=== PATIENT | female | born 1955 | race Caucasian/White ===

== ENCOUNTER 2016-12-09 19:21 | Emergency (ER) | payer BC, MEDICARE ==
[2016-12-09 19:22] VITALS: BP 163/85; PULSE 77; RESP 16; TEMP 98.1; O2SAT 97
[2016-12-09] MEDS ORDERED: PRED-503 PO (20:16)
[2016-12-09] MEDS ORDERED: MECL-62 PO (20:16)
[2016-12-09] MEDS ORDERED: MOME17I EACH NARE (20:16)
--- NOTE | 2016-12-09 20:21 | PD ---
HPI Chief Complaint: ENT Complaint Time Seen by Provider: 20:18 Travel History International Travel<30 days: No Contact w/Intl Traveler<30days: No Traveled to known affect area: No History of Present Illness HPI 61-year-old white female presents to emergency Department with complaints of dizziness. She's been having symptoms now for the last 2-3 days. Symptoms are worse when she bends and moves. She's has a sensation of dizziness and movement. She has had some decreased hearing, and ear congestion. She states that she feels muffled in her head. She hears her voice resonating in her sinuses. She does have seasonal allergies. She denies any fever or chills. No ear pain or sore throat. No cough. No shortness of breath or wheezing. She denies any numbness, tingling or focal weakness. Symptoms are worse with movement. Some relief with remaining still. PFSH Past Medical History Narrative Medical Seasonal allergies Tetanus Vaccination: < 5 Years ?: Not Past Surgical History Narrative Surgical Hysterectomy, Cervical fusion 2 Hysterectomy: Yes Social History Alcohol Use: No Tobacco Use: No Substance Use: No Allergies-Medications (Allergen,Severity, Reaction): Coded Allergies: No Known Allergies (Unverified , 12/09/16) Reported Meds & Prescriptions Reported Meds & Active Scripts Active Meclizine (Meclizine HCl) 25 Mg Tab 25 Mg PO QID PRN Nasonex Nasal [place] (Mometasone Furoate) 50 Mcg/Act Naspr 2 [place] EACH NARE DAILY Deltasone (Prednisone) 20 Mg Tab 20 Mg PO BID Review of Systems Except as stated in HPI: all other systems reviewed are Neg Physical Exam Narrative GENERAL: Well-developed, well-nourished in no apparent distress. Nontoxic appearing. HEAD: Normocephalic, atraumatic. EYES: Pupils equal round and reactive. Extraocular motions intact. No scleral icterus. No injection or drainage. ENT: Nose clear. Throat without erythema, tonsillar hypertrophy or exudate. Uvula midline. Airway patent. NECK: Trachea midline. Supple, nontender, moves head freely. No central bony tenderness or spasm. CARDIOVASCULAR: Regular rate and rhythm without murmurs, gallops, or rubs. RESPIRATORY: Clear to auscultation. Breath sounds equal bilaterally. No wheezes , rales, or rhonchi. GASTROINTESTINAL: Abdomen soft, non-tender, nondistended. No hepato-splenomegaly , or palpable masses. No guarding. EXTREMITIES: No clubbing, cyanosis, or edema. No joint tenderness. BACK: Nontender without deformity. No flank tenderness. NEUROLOGICAL: Awake, alert and oriented x 3 .Cranial nerves grossly intact. Motor and sensory grossly within normal limits. Normal speech. Data Data Last Documented VS Vital Signs Date Time Temp Pulse Resp B/P Pulse Ox O2 Delivery O2 Flow Rate FiO2 12/09/16 19:22 98.1 77 16 163/85 97 Room Air Orders Prednisone (Deltasone) (12/09/16 20:30) Meclizine (Antivert) (12/09/16 20:30) [facility] Medical Decision Making Medical Screen Exam Complete: Yes Emergency Medical Condition: Yes Medical Record Reviewed: Yes Differential Diagnosis Differential diagnoses: Mnire's disease, labyrinthitis, benign positional vertigo Narrative Course This is labyrinthitis Patient's given prednisone 20 a grams by mouth and Antivert 50 g by mouth. Diagnosis Primary Impression: Labyrinthitis of both ears Patient Instructions: General Instructions Additional Instructions: Rest. Prednisone, Nasonex, meclizine. Take Sudafed for the next 1-2 weeks. Follow-up with your doctor in the next week. Med/Other Pt SpecificInfo: Prescription(s) given Scripts Meclizine 25 Mg Tab25 Mg PO QID PRN (VERTIGO) #60 TAB Ref 0 Prov:Colten Handley MD 12/09/16 Mometasone Nasal [place] (Nasonex Nasal [place])50 Mcg/Act Naspr2 [place] EACH NARE DAILY #1 BOTTLE Prov:Colten Handley MD 12/09/16 Prednisone (Deltasone)20 Mg Tab20 Mg PO BID #10 TAB Prov:Colten Handley MD 12/09/16 Disposition: 01 DISCHARGE HOME Condition: Stable Julio César Pérez Dec 09, 2016 20:21
[2016-12-09] MEDS ORDERED: predniSONE 20 MG TAB PO ONE (20:30)
[2016-12-09] MEDS ORDERED: MECLIZINE HCL 25 MG TAB PO ONE (20:30)
== END 2016-12-09 20:27 | disposition home or self-care (01) ==
LOC: NEPB 19:21
DX: H83.03 Labyrinthitis, bilateral (principal)
CPT/HCPCS: 99283; J7512